=== PATIENT | male | born 1975 | race Caucasian/White ===

== ENCOUNTER 2022-02-14 16:20 | Emergency (ER) | payer BC ==
[2022-02-14 16:42] VITALS: BP 159/107; PULSE 70
== END 2022-02-14 17:38 | disposition home or self-care (01) ==
LOC: JP.ED 16:20
DX: I10 Essential (primary) hypertension (principal); R51.9 Headache, unspecified; Z88.0 Allergy status to penicillin; Z88.5 Allergy status to narcotic agent; Z88.8 Allergy status to other drugs, medicaments and biological substances; Z79.82 Long term (current) use of aspirin
CPT/HCPCS: 99282; 99283

== ENCOUNTER 2022-02-17 10:47 | Emergency (ER) | payer BC ==
[2022-02-17 13:02] VITALS: BP 134/97; PULSE 75
== END 2022-02-17 13:02 | disposition home or self-care (01) ==
LOC: JP.ED 10:47
DX: R55 Syncope and collapse (principal); I10 Essential (primary) hypertension; Z79.899 Other long term (current) drug therapy; Z88.0 Allergy status to penicillin; Z88.5 Allergy status to narcotic agent
CPT/HCPCS: 36415; 80048; 83605; 84484; 85025; 93010; 93225; 93226; 99283; 99284

== ENCOUNTER 2022-10-12 08:29 | Day surgery (SDC) | payer BC, MEDICAID ==
[2022-10-12] MEDS ORDERED: Lactated Ringers 1,000 ML IV SCH (09:15)
[2022-10-12] MEDS ORDERED: Propofol 200 MG/20 ML SDV ONE (10:02)
[2022-10-12] MEDS ORDERED: Midazolam 1 MG/ML 2 ML SDV ONE (10:02)
[2022-10-12] MEDS ORDERED: fentaNYL 100 MCG/2 ML SDV ONE (10:02)
[2022-10-12 12:08] VITALS: BP 141/99; PULSE 70
== END 2022-10-12 12:05 | disposition home or self-care (01) ==
LOC: JP.SDS 08:29
PROVIDERS: ATTEND Student in an Organized Health Care Education/Training Program
DX: Z12.11 Encounter for screening for malignant neoplasm of colon (principal); I10 Essential (primary) hypertension; E78.5 Hyperlipidemia, unspecified; E66.9 Obesity, unspecified; Z68.33 Body mass index [BMI] 33.0-33.9, adult; Z88.0 Allergy status to penicillin; Z88.6 Allergy status to analgesic agent; Z88.5 Allergy status to narcotic agent; Z79.899 Other long term (current) drug therapy
CPT/HCPCS: 45378; J2250; J2704; J3010; J7120

== ENCOUNTER 2022-10-25 00:47 | Emergency (ER) | payer BC, MEDICAID ==
[2022-10-25] MEDS ORDERED: OLANZapine 10 MG Vial IM ONE (01:20)
[2022-10-25] MEDS ORDERED: Ketorolac 30 MG/ML SDV IM ONE (01:20)
[2022-10-25 01:33] LABS: ESTIMATED GFR 68 mL/min (>60)
[2022-10-25 06:30] VITALS: BP 117/88; PULSE 68
== END 2022-10-25 07:09 | disposition home or self-care (01) ==
LOC: JP.ED 00:47
DX: F12.922 Cannabis use, unspecified with intoxication with perceptual disturbance (principal); I25.10 Atherosclerotic heart disease of native coronary artery without angina pectoris; I10 Essential (primary) hypertension; Z88.0 Allergy status to penicillin; Z88.5 Allergy status to narcotic agent; Z88.6 Allergy status to analgesic agent; Z79.899 Other long term (current) drug therapy
CPT/HCPCS: 36415; 80053; 80305; 80307; 81001; 82947; 85025; 96372; 99284; J1885; J3490

== ENCOUNTER 2024-08-15 07:36 | Day surgery (SDC) | payer BC, MEDICAID ==
[2024-08-15] MEDS ORDERED: fentaNYL 50 MCG/ML SDV ONE (07:55)
[2024-08-15] MEDS ORDERED: Propofol 200 MG/20 ML SDV ONE (07:55)
[2024-08-15] MEDS ORDERED: Midazolam 1 MG/ML 2 ML SDV ONE (07:55)
[2024-08-15] MEDS ORDERED: Lactated Ringers 1,000 ML IV SCH (08:15)
[2024-08-15] MEDS: Sodium Chloride 0.9% 1,000 ML IV SCH (08:27)
[2024-08-15 11:08] VITALS: BP 132/99; PULSE 76
== END 2024-08-15 10:35 | disposition home or self-care (01) ==
LOC: JP.SDS 07:36
PROVIDERS: ATTEND Surgery
DX: Z12.11 Encounter for screening for malignant neoplasm of colon (principal); K21.9 Gastro-esophageal reflux disease without esophagitis; I10 Essential (primary) hypertension; E66.9 Obesity, unspecified
CPT/HCPCS: 45378; J2250; J2704; J3010; J7030; 00811-QZ